=== PATIENT | male | born 1945 | race Caucasian/White ===

== ENCOUNTER → 2018-07-16 09:40 | Outpatient (CLI) | payer MEDICARE, OTHER | END | disposition home or self-care (01) | LOC: D.HCCARDIO 09:40 | PROVIDERS: ATTEND Internal Medicine Cardiovascular Disease | DX: R01.1 Cardiac murmur, unspecified (principal) ==

== ENCOUNTER 2018-08-06 07:07 | Outpatient (CLI) | payer MEDICARE, OTHER ==
[~2018-08-06] VITALS: Ht 182.9 cm; Wt 104.5 kg
--- NOTE | ~2018-08-06 | HEMODYNAMI ---
PATIENT:JUAQUIN GILES MEDICAL RECORD: [id number] : 43 LOCATION:[facility] ADMISSION DATE: 08/06/18 Generatedon:08/06/20189:46 Patient name: JUAQUIN GILES Patient #: [id number] SSN: D OB: 1945 Date of study: 08/06/2018 Page: Of Hemodynamic Procedure Report Patient Data Patient Demographics Procedure consent was obtained First Name: JUAQUIN Gender: Male Last Name: CHAN : 1945 Patient #: [id number] Age: 72 year(s) Race: Unknown Additional ID: [id number] Contact details Address: [address] [place] [address] State: [place] City: [place] Zip code: [address] Past Medical History Allergies: No known allergies Admission Admission Data Admission Date: 08/06/2018 Admission Time: 7:07 Admit Source: Other Weight (lbs.): 231.49 Weight (kg.): 105 Lab Results Lab Result Date: 08/06/2018 Lab Result Time: 0:00 Biochemistry Name Units Result Min Max BUN mg/dl 21 --(----)-* 7 18 Creatinine mg/dl 1.2 --(---*)-- 0.6 1.3 CBC Name Units Result Min Max Hematocrit % 41.8 -*(----)-- 42 54 Hemoglobin g/dl 14.4 --(*---)-- 13.5 17.5 Procedure Procedure Types Cath Procedure Diagnostic Procedure LHC LHC w/Coronaries Aortic Root Angiography Sedation Charges Moderate Sedation up to 15 minutes Procedure Description Procedure Date Procedure Date: 08/06/2018 Procedure Start Time: 9:27 Procedure End Time: 9:45 Procedure Staff Name Function Дмитрий Graham MD Performing Physician Nelly Estrada RT Monitor Dayday Al RT Scrub Vicki Pulliam RN Nurse Procedure Data Cath Procedure Fluoroscopy Diagnostic fluoroscopy Total fluoroscopy Time: 4.4 time: 4.4 min min Diagnostic fluoroscopy Total fluoroscopy dose: dose: 1120 mGy 1120 mGy Contrast Material Contrast Material Type Amount (ml) Isovue 300 109 Entry Location Entry Primary Successful Side Size Upsize Upsize Entry Closure Carter ccessful Closure Location (Fr) 1 (Fr) 2 (Fr) Remarks Device Remarks Radial Right 6 Fr Mechanical artery Short Compression Estimated blood loss: 5 ml Diagnostic catheters Device Type Used For End Catheter Placement DIAGNOSTIC Derian 110cm Procedure 5Fr catheter ([id number]) DIAGNOSTIC Lock[place] 110cm 5 Procedure Fr catheter ([id number]) DIAGNOSTIC Pigtail 5Fr Procedure catheter ([id number]) Procedure Complications No complications Procedure Medications Medication Administration Route Dosage 0.9% NaCl I.V. 100 ml/hr Oxygen etCO2 Nasal cannula 2 l/min Lidocaine 2% added to field 20 Heparin Flush Bag added to field 2 bags (1000units/500ml NS) Radial Cocktail added to field 1 syringe (Verapamil 2mg/Nitro 400mcg/Heparin 1500units) Versed I.V. 2 mg Fentanyl I.V. 50 mcg Fentanyl I.V. 50 mcg Hemodynamics Rest HGB: 14.4 (g/dl) Heart Rate: 58 (bpm) Pressure Samples Time Site Value (mmHg) Purpose Heart Use Rate(bpm) 9:30 LV 134/-6,8 Snapshot 76 9:31 AO 111/68(87) Pullback 71 9:31 LV 129/-4,7 Pullback 71 Gradients Valve Time Site 1 Site 2 Mean SEP/DFP Peak To Heart Use (mmHg) (sec/min) Peak Rate (mmHg) (bpm) Aortic 9:31 LV AO 12 7 18 71 129/-4,7 111/68(87) Calculations Valve P-P Mean Valve Index Valve Source Name Gradient Area Flow (cm2) Aortic 18 12 18 12 Snapshots Pre Cath Intra NCS Post Cath Vital Signs Time Heart Resp SPO2 etCO2 NIBP (mmHg) Rhythm Pain Sedation Rate (ipm) (%) (mmHg) Status Level (bpm) 9:10:34 56 16 99 33.2 134/81(108) SB 0 (11) 10(A) , No pain 9:14:56 55 14 99 39.2 116/78(98) SB 0 (11) 10(A) , No pain 9:19:14 55 13 98 33.9 115/73(85) SB 0 (11) 10(A) , No pain 9:23:31 57 17 98 37.7 115/72(104) SB 0 (11) 10(A) , No pain 9:27:49 56 15 99 39.9 119/72(90) SB 0 (11) 10(A) , No pain 9:32:07 75 16 98 35.4 104/62(83) NSR 0 (11) 9(A) , No pain 9:36:23 75 14 97 40.7 114/65(85) NSR 0 (11) 9(A) , No pain 9:40:39 69 14 98 36.9 107/64(84) NSR 0 (11) 10(A) , No pain 9:44:57 58 13 98 36.9 107/63(89) NSR 0 (11) 10(A) , No pain Medications Time Medication Route Dose Verified Delivered Reason Notes Ef fectiveness by by 9:05:49 0.9% NaCl I.V. 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 2 mg Дмитрий Vicki for Santos Pulliam sedation RN 9:24:44 Fentanyl I.V. 50 mcg Дмитрий Vicki for Santos Pulliam sedation RN 9:29:27 Fentanyl I.V. 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 8:38:30 Signed procedure consent form obtained from patient. 8:38:32 Diagnostic Cath status Elective 8:38:33 Time tracking: Regular hours (M-F 7:00 - 5:00) 8:38:37 Plan of Care:Hemodynamics will remain stable., Cardiac rhythm will remain stable., Comfort level will be maintained., Respiratory function will remain adequate., Patient/ family verbilizes understanding of procedure., Procedure tolerated without complication., Recovers from procedure without complications.. 8:40:28 H&P Date Dictated: 08/06/2018 Within 30 days and on chart., H&P Addendum completed by physician on day of procedure. (MUST COMPLETE FOR ALL OUTPATIENTS). 8:40:36 Patient allergic to No known allergies 8:42:48 Patient Weight : 231.49 lbs 8:44:57 Lab Result : Creatinine 1.2 mg/dl 8:44:57 Lab Result : BUN 21 mg/dl 8:44:57 Lab Result : Hemoglobin 14.4 g/dl 8:44:57 Lab Result : Hematocrit 41.8 % 8:50:19 Dayday Al RT(R) sent for patient. Start room use. 9:00:04 Patient received from Pre/Post Procedure Room to CCL 1 Alert and oriented. Tansferred to table in Supine position. 9:00:06 Warm blankets applied, and ruthy hugger turned on for patient comfort. 9:00:07 Correct patient and procedure confirmed by team. 9:00:07 ECG and BP/O2 sat monitors applied to patient. 9:05:38 Vital chart was started 9:05:49 0.9% NaCl 100 ml/hr I.V. was administered by Vicki Pulliam RN; used for procedure; 9:05:55 Oxygen 2 l/min etCO2 Nasal cannula was administered by Vicki Pulliam RN; used for procedure; 9:06:01 Lidocaine 2% 20ml vial added to field was administered by Дмитрий Graham MD; for local anesthetic; 9:06:05 Heparin Flush Bag (1000units/500ml NS) 2 bags added to field was administered by Дмитрйи Graham MD; used for procedure; 9:06:11 Radial Cocktail (Verapamil 2mg/Nitro 400mcg/Heparin 1500units) 1 syringe added to field was administered by Дмитрий Graham MD; used for procedure; 9:11:49 Baseline sample Acquired. 9:12:00 Rhythm: sinus bradycardia 9:12:02 Full Disclosure recording started 9:12:02 Pre-procedure instructions explained to patient. 9:12:03 Pre-op teaching completed and patient verbalized understanding. 9:12:04 Family in waiting room. 9:12:05 Patient NPO since Midnight. 9:12:07 Is patient on blood thinner?No 9:12:09 Patient diabetic? No. 9:12:12 Previous problem with sedation/anesthesia? No ? 9:12:12 Snore? Yes 9:12:13 Sleep apnea? No 9:12:14 Deviated septum? No 9:12:15 Opens mouth fully? Yes 9:12:16 Sticks out tongue? Yes 9:12:19 Airway obstruction? No ? 9:12:23 Dentures? Yes PARTIAL IN 9:12:26 Modified Juan Manuel's test Ulnar < 7 seconds 9:12:28 Patient pain scale 0/10 ?. 9:12:33 IV patent on arrival in left antecubital with 0.9% NaCl at [facility]. 9:12:36 Lab results completed and on chart. 9:12:39 Right Radial & Right Groin area was prepped with chlora-prep and draped in sterile fashion 9:12:41 Alarms reviewed by R. N. 9:12:41 Sharps counted by scrub and verified by R.N. 9:12:48 Use device set Radial Dx or PCI 9:12:49 ACIST Syringe (41326) opened to sterile field. 9:12:49 Medline Cath Pack ([id number]) opened to sterile field. 9:12:50 Bag Decanter (2002) opened to sterile field. 9:12:51 ACIST Hand Control (73104) opened to sterile field. 9:12:53 ACIST Manifold (23767) opened to sterile field. 9:12:54 Tegaderm 4 x 4 (1626W) opened to sterile field. 9:12:58 EMERALD Guide Wire (275-368) opened to sterile field. 9:12:58 SHEATH 6FR Slender (35-1060) opened to sterile field. 9:13:00 NEEDLE Cook 21G 4cm Radial ([id number]) opened to sterile field. 9:13:00 MBrace Wrist Support ([id number]) opened to sterile field. 9:23:23 --------ALL STOP TIME OUT------ 9::24 Final Timeout: patient, procedure, and site verified with staff and physician. All members of the team are in agreement. 9:23:26 Right Radial & Right Groin site verified by team. 9:23:35 Maximum allowable Isovue 300 dose 300ml. Physician notified. (300ml for normal creatinines. For patients with creatinine of 1.7 or higher multiply weight(kg) x 5 divided by creatinine.) 9:23:40 Fire Safety Assessment: A--An alcohol-based skin anteseptic being used preoperatively., C--Open oxygen or nitrous oxide is being used., D--An ESU, laser, or fiber-optic light is being used. 9:23:43 Physical assessment completed. ASA score P 2 - A patient with mild systemic disease as per Дмитрий Graham MD. 9:23:46 Sedation plan: IV Moderate Sedation Medication:Versed, Fentanyl 9:24:30 Zero performed for pressure channel P1 9:24:38 Versed 2 mg I.V. was administered by Vicki Pulliam RN; for sedation; 9::44 Fentanyl 50 mcg I.V. was administered by Vicki Pulliam RN; for sedation; 9:26:37 Procedure started. 9:27:09 Local anesthetic to right radial artery with Lidocaine 2% by Дмитрий Graham MD.INITIAL ACCESS ONLY 9:28:28 A 6 Fr Short sheath was inserted into the Right Radial artery 9:29:11 A DIAGNOSTIC Derian 110cm 5Fr catheter ([id number]) was advanced over the wire and used for Procedure. 9:29:27 Fentanyl 50 mcg I.V. was administered by Vicki Pulliam RN; for sedation; 9:30:34 LV gram done using BURNS 9:30:39 Injector settings: Ml/sec: 5, Volume: 15, 9:30:52 LV hemodynamics recorded. 9:31:10 EF : 55 % 9:32:50 Catheter exchanged over wire. 9:32:58 UNABLE TO ENGAGE LCA 9:33:38 A DIAGNOSTIC [place] 110cm 5 Fr catheter (919762) was advanced over the wire and used for Procedure. 9:35:47 LCA angiography performed. 9:35:49 RCA angiography performed. 9:36:16 Catheter exchanged over wire. 9:37:01 A DIAGNOSTIC Pigtail 5Fr catheter ([id number]) was advanced over the wire and used for Procedure. 9:41:02 Aortic Root visualized 9:42:39 Catheter removed. 9:43:01 Procedure ended.(Physican Out) 9:43:43 TR BAND Standard ([id number]) opened to sterile field. 9:43:49 Sheath removed intact; hemostasis achieved with Mechanical Compression to the Right Radial artery. 9:43:54 Fluoroscopy time 04.40 minutes. 9:43:58 Fluoroscopy dose: 1120 mGy 9:43:58 Flurop Dose total: 1120 9:44:01 Contrast amount:Isovue 300 109ml. 9:44:02 Sharps counted by scrub and verified by R.N. 9:44:05 TR band inflated with 10cc of air. 9:44:07 Post-procedure physical assessment completed. ASA score P 2 - A patient with mild systemic disease as per Дмитрий Graham MD. 9:44:09 Post procedure rhythm: sinus rhythm 9:44:12 Estimated blood loss: 5 ml 9:44:13 Post procedure instruction explained to patient.Patient verbalizes understanding. 9:44:14 Patient needs reinforcement of post procedure teaching. 9:44:30 Procedure type changed to Cath procedure, Diagnostic procedure, LHC, LHC w/Coronaries, Aortic Root Angiography, Sedation Charges, Moderate Sedation up to 15 minutes 9:44:53 Procedure and supply charges have been captured, reviewed, submitted and are correct. 9:44:55 Procedure Complication : No complications 9:44:57 Vital chart was stopped 9:44:57 See physician's report for complete and final results. 9:44:58 Report given to Pre/Post Procedure Room. 9:45:01 Patient transfered to Pre/Post Procedure Room with Stretcher. 9:45:03 Procedure ended. 9:45:03 Full Disclosure recording stopped 9:45:08 End room use (Document Last) Device Usage Item Name Manufacture Quantity Catalog Hospital Part Current Minimal Lot# / Number Charge Number Stock Stock Serial# Code VIKTOR Flaherty 1 36655 889146 738166 503429 20 Syringe Shustir (95669) HitMeUp Inc Medline Medline 1 [id number] 266376 19159 295909 5 Cath Pack ([id number]) Bag Microtek 1 371942 88564 853636 5 DecGlimmerglass [employer] Inc. (2002S) ACIST Hand Acist 1 84704 480090 288864 119790 5 Control Medical (92051) Systems Inc ACIST Acist 1 96395 554192 687904 748487 5 Manifold Medical (29029) Systems Inc Tegaderm 4 3M 1 1626W 379181 029888 373015 5 x 4 (1626W) EMERALD Cardinal 1 502-455 820033 503001 279808 5 Guide Wire Health (502-455) SHEATH 6FR Terumo 1 [id number] 019738 912437 584953 5 Slender (80-1060) NEEDLE Intellitactics Cook Medical 1 [id number] 185020 630647 430240 5 21G 4cm Radial (G78253) MBrace Advanced 1 140-0250-00 138183 46203 551980 5 Wrist Vascular Support Dynamics ([id number]) DIAGNOSTIC Terumo 1 40-5023 798753 109039 666073 5 Derian 110cm 5Fr catheter (225329) DIAGNOSTIC Terumo 1 40-5013 711562 991032 822985 5 [place] 110cm 5 Fr catheter (624126) DIAGNOSTIC Cardinal 1 194066Y 564532 909421 163495 5 Pigtail 5Fr Health catheter (554713Y) TR BAND Terumo 1 [id number] 015935 927073 238347 40 Standard ([id number]) Signature Audit Melvin Stage Time Signature Unsigned Intra-Procedure 08/06/2018 Nelly Estrada 9:46:38 AM RT(R) Signatures Monitor : Nelly Estrada Signature : RT Date : Time : [facility] [address] [place] [address]
[2018-08-06] MEDS ORDERED: LOTENSIN 10 MG10 MG PO (07:20)
[2018-08-06] MEDS ORDERED: ZYLOPRIM300 MG PO (07:20)
[2018-08-06] MEDS ORDERED: NORVASC5 MG PO (07:21)
[2018-08-06 07:40] VITALS: BP 138/82; Ht 182.9 cm; Wt 104.5 kg
[2018-08-06 07:50] LABS: BASOPHILS 0.2 % (0-2); HEMATOCRIT 41.8 % (42.0-54.0); HEMOGLOBIN 14.4 g/dL (13.5-17.5); IMMATURE GRANULOCYTES 0.9 % (0-5); LYMPHOCYTES 22.9 % (15-50); MCH 33.3 pg (26.0-34.0); MCHC 34.4 g/dL (31.0-37.0); MCV 96.8 fL (80.0-100.0); MONOCYTES 11.3 % (2-11); NEUTROPHILS 61.7 % (40-80); PLATELET COUNT 201 10x3/uL (130-400); RBC 4.32 10x6/uL (4.20-6.10); RDW 13.2 % (11.5-14.5); WBC 5.3 10x3/uL (4.8-10.8)
[2018-08-06 08:19] LABS: ANION GAP 14.9 mmol/L (8-16); CALCIUM 9.5 mg/dL (8.5-10.1); CARBON DIOXIDE 26.3 mmol/L (21.0-32.0); CREATININE - SERUM 1.2 mg/dL (0.6-1.3); POTASSIUM - SERUM 4.2 mmol/L (3.5-5.1)
--- NOTE | 2018-08-06 09:53 | NUR ---
PT ARRIVED BY STRETCHER. PLACED ON MONITORS AND ASSESSMENT COMPLETED. FAMILY AT BEDSIDE.
--- NOTE | 2018-08-06 10:10 | NUR ---
PT RESTING COMFORTABLY. VSS. FAMILY AT BEDSIDE. DR. CROCKETT ROUNDED AND SPOKE WITH PT AND PT'S FAMILY. RIGHT RADIAL TR BAND IN PLACE. NO BLEEDING/HEMATOMA NOTED.
--- NOTE | 2018-08-06 10:40 | NUR ---
PT SITTING UP IN BED. VISITING WITH FAMILY. VSS. RIGHT RADIAL TR BAND IN PLACE. NO BLEEDING/HEMATOMA NOTED.
--- NOTE | 2018-08-06 11:00 | NUR ---
3cc OF AIR REMOVED FROM TR BAND. PT TOLERATED WELL. NO BLEEDING/HEMATOMA NOTED.
--- NOTE | 2018-08-06 11:15 | NUR ---
3cc OF AIR REMOVED FROM TR BAND. PT TOLERATED WELL. NO BLEEDING/HEMATOMA NOTED. VSS. FAMILY AT BEDSIDE.
--- NOTE | 2018-08-06 11:33 | NUR ---
3cc OF AIR REMOVED FROM TR BAND. TOLERATING WELL. NO BLEEDING/HEMATOMA NOTED. MEREDITH BRYANT RN AT BEDSIDE SPEAKING WITH PT ABOUT CV SURGERY AND SETTING UP APPT TO VISIT IN CLINIC AFTER DISCHARGE.
--- NOTE | 2018-08-06 11:40 | NUR ---
LEFT WRIST PIV D/C'D WITH CATH TIP INTACT. PT TOLERATED WELL. PT INSTRUCTED TO GET UP AND DRESSED. PT'S FAMILY AT BEDSIDE TO ASSIST. NO ASSISTANCE NEEDED AT THIS TIME FROM NURSE. CALL LIGHT WITHIN REACH.
--- NOTE | 2018-08-06 11:45 | NUR ---
PT AMBULATED TO RESTROOM. VOIDED WITHOUT DIFFICULTY. NO S/S OF DISTRESS NOTED. TR BAND REMOVED. DRESSING APPLIED. NO BLEEDING/HEMATOMA NOTED.
--- NOTE | 2018-08-06 11:50 | NUR ---
DISCUSSED DISCHARGE INSTRUCTIONS WITH PT AND PT'S FAMILY. THEY VOICED UNDERSTANDING. RIGHT WRIST DRESSING C/D/I. NO S/S OF HEMATOMA NOTED.
--- NOTE | 2018-08-06 12:00 | NUR ---
PT TAKEN OUT TO VEHICLE BY WHEELCHAIR. NO S/S OF DISTRESS NOTED. ALL BELONGINGS AND PAPERWORK IN HAND.
== END 2018-08-06 12:00 | disposition home or self-care (01) ==
LOC: D.CATH 07:07
PROVIDERS: ATTEND Internal Medicine Cardiovascular Disease
DX: I25.119 Atherosclerotic heart disease of native coronary artery with unspecified angina pectoris (principal); I77.819 Aortic ectasia, unspecified site; Z01.812 Encounter for preprocedural laboratory examination; Z79.899 Other long term (current) drug therapy

== ENCOUNTER 2018-08-12 12:44 | Inpatient (IN) | payer MEDICARE, OTHER ==
[~2018-08-12] VITALS: Ht 182.9 cm; Wt 105.5 kg
[~2018-08-12 12:44] MED LIST: LOTENSIN 10 MG10 MG PO; NORVASC5 MG PO; ZYLOPRIM300 MG PO
[2018-08-12 14:53] LABS: BASOPHILS 0.3 % (0-2); EOSINOPHILS 2.3 % (0-7); HEMATOCRIT 43.1 % (42.0-54.0); HEMOGLOBIN 14.8 g/dL (13.5-17.5); IMMATURE GRANULOCYTES 0.5 % (0-5); LYMPHOCYTES 25.5 % (15-50); MCH 33.6 pg (26.0-34.0); MCHC 34.3 g/dL (31.0-37.0); MCV 97.7 fL (80.0-100.0); MEAN PLATELET VOLUME 10.1 fL (7.4-10.4); NEUTROPHILS 60.4 % (40-80); PLATELET COUNT 237 10x3/uL (130-400); RBC 4.41 10x6/uL (4.20-6.10); RDW 13.3 % (11.5-14.5); WBC 6.1 10x3/uL (4.8-10.8)
[2018-08-12 15:00] LABS: APTT 28.7 SECONDS (22.8-39.4); INR 1.04 (0.85-1.17); PROTIME 13.1 SECONDS (11.6-15.0)
[2018-08-12 15:02] LABS: APPEARANCE CLEAR (CLEAR); BILIRUBIN NEGATIVE (NEGATIVE); COLOR YELLOW (YELLOW); GLUCOSE NEGATIVE (NEGATIVE); KETONE NEGATIVE (NEGATIVE); NITRITE NEGATIVE (NEGATIVE); PROTEIN NEGATIVE (NEGATIVE); UROBILINOGEN NORMAL (NORMAL)
[2018-08-12 15:17] LABS: ALBUMIN 3.6 g/dL (3.4-5.0); BILIRUBIN - TOTAL 0.54 mg/dL (0.2-1.3); CALCIUM 9.2 mg/dL (8.5-10.1); CARBON DIOXIDE 31.9 mmol/L (21.0-32.0); CREATININE - SERUM 1.2 mg/dL (0.6-1.3); PHOSPHOROUS 3.5 mg/dL (2.5-4.9); POTASSIUM - SERUM 3.9 mmol/L (3.5-5.1); PROTEIN - SERUM 8.5 g/dL (6.4-8.2); T4 THYROXIN - FREE 0.81 ng/dL (0.76-1.46); THYROID STIMULATING HORMONE 1.94 uIU/mL (0.36-3.74); URIC ACID 4.4 mg/dL (2.6-7.2)
[2018-08-19] VITALS (40 sets, daily range): BP systolic 80–135; BP diastolic 48–83; BMI 31.2; BMI 31.9
[2018-08-19] MEDS ORDERED: BAYER CHEWABLE81 MG PO (06:00)
[2018-08-19] MEDS ORDERED: TUMERIC (06:01)
[2018-08-19] MEDS ORDERED: I-CAPS (06:02)
[2018-08-19] MEDS ORDERED: SUPER BETA PROSTATE (06:03)
[2018-08-19] MEDS ORDERED: VITAMIN B-12500 MC1 PO (06:04)
[2018-08-19] MEDS ORDERED: VITAMIN (06:04)
[2018-08-19] MEDS ORDERED: [UNRECOGNIZED DRUG - OTHER] (06:08)
[2018-08-19 08:31] LABS: APTT 29.5 SECONDS (22.8-39.4); INR 1.1 (0.85-1.17); PROTIME 13.7 SECONDS (11.6-15.0)
[2018-08-19 09:44] LABS: INR 1.16 (0.85-1.17); PROTIME 14.3 SECONDS (11.6-15.0)
[2018-08-19 09:48] LABS: APTT 53.2 SECONDS (22.8-39.4)
--- NOTE | 2018-08-19 14:17 | NUR ---
PT ARRIVED IN UNIT. PT HOOKED TO ICU MONITORS. PT SEDATED AND ON THE VENTILATOR. PT CAME IN THE UNIT WITH PLASMALYTE, SAMANTHA AND EPI INFUSING. 8.0 ETT NOTED 26 AT THE LIP. RIGHT IJ CORDIS NOTED. DRESSING C/D/I. MIDLINE INCISION. DRESSING C/D/I. SUBSTERNAL DRESSING C/D/I. CT X2 Y'D INTO A SINGLE TUBE NOTED CONNECTED TO 20 H2O SUCTION WITH NO AIR LEAK. LEFT TUNDE DRAIN COMPRESSED. BLOODY DRAINAGE NOTED. DRESSING C/D/I. ATRIAL PACER WIRES CONNECTED TO A TPM. AAI 80, AMA 15, SENT 0.5. PT PACING WITH A FIRST DEGREE BLOCK NOTED. R RADIAL MATA NOTED. GOOD WAVE FORM. WRIST PROTECTOR ON. LEFT AC PIV NOTED C/D/I WITH NO S/SX OF INFILTRATION. FC NOTED WITH CLEAR, YELLOW URIN. LLE HARVEST NOTED WITH COBAN FROM ANKLE TO GROIN. C/D/I. RLE DRESSING X1 FROM UNSUCCESSFUL HARVEST. DRESSING C/D/I. CALL LIGHT IN REACH. WILL CONT POC.
--- NOTE | 2018-08-19 14:22 | NUR ---
ATTEMPT EVH ON RIGHT LEG, MOVE TO LEFT, VEIN HARVEST FORM LEFT LEG ENDOVASCULAR.
--- NOTE | 2018-08-19 15:50 | NUR ---
PT ANSWER YES AND NO QUESTIONS BUT STILL UNABLE TO FOLLOW COMMANDS SUCH SQUEEZING FINGERS OR MOVING EXTIMITIES. VSS. WILL CONT POC.
--- NOTE | 2018-08-19 15:55 | NUR ---
ABG OBTAINED PER ORDERS
--- NOTE | 2018-08-19 16:05 | NUR ---
1 AMP GIVEN AND REPEAT ABGS IN [address] JOYA.
--- NOTE | 2018-08-19 16:10 | NUR ---
PT FOLLOWING COMMANDS. VSS. CPAP PER RT. PT TOLERATING WELL.
--- NOTE | 2018-08-19 16:40 | NUR ---
DR JOYA AT THE PTS BEDSIDE. HE TURNED OFF PACEMAKER. PT NSR RATE 85. PT FOLLOWING COMMANDS DOING WELL WITH WEENING TRIALS WITH THE VENTILATOR.
--- NOTE | 2018-08-19 16:45 | NUR ---
DR JOYA INSTRUCTED TO GIVE 1 AMP OF HCO3 AND REPEAT ABG IN 30.
--- NOTE | 2018-08-19 17:10 | NUR ---
ABGS COMPLETED PER ORDERS. DR JOYA CHECKED RESULTS. OK TO EXTUBATE.
--- NOTE | 2018-08-19 17:15 | NUR ---
PT EXUBATED PER RT AND PLACE ON 2L VIA NC. PT DOING WELL.
--- NOTE | 2018-08-19 18:54 | NUR ---
PT TACHYPNEIC. ABG OBTAINED. O2 INCREASED FROM 2L TO 4L. DR JOYA CALLED AND NOTIFIED. NS 250 BOLUS. GIVEN 1 AMP OF HCO3, CPAP AT 5CM FOR 2 HOURS AND REPEATE ABG. (RT NOTIFIED AND AWARE). DECREASE EPI GTT IN HALF AND TRY TO WEEN OFF SAMANTHA.
--- NOTE | 2018-08-19 20:00 | NUR ---
FAMILY AT BEDSIDE, UPDATE GIVEN, PT C/O INCISIONAL PAIN, PAIN MED GIVEN SEE MAR FOR FURTHER, REPOSITIONED FOR COMFORT, VSS, WILL CONTINUE TO MONITOR
--- NOTE | 2018-08-19 21:28 | NUR ---
NOTIFIED ABG RESULTS WITH PT UPDATE, NO NEW ORDERS RECEIVED, PT WILL CONTINUE TO MONITOR
--- NOTE | 2018-08-19 23:00 | NUR ---
REASSESSMENT COMPLETE SEE FLOW SHEET, PT AAOx4, CPAP SETTINGS PER RT, PT TOLLERATING WELL, ABLE TO SWALLOW SIPS H2O WHEN PLACED ON NC, VSS, REPOSITIONED FOR COMFORT, WILL CONTINUE TO MONITOR
[2018-08-20] VITALS (51 sets, daily range): BP systolic 93–120; BP diastolic 54–80; BMI 31.7
--- NOTE | 2018-08-20 02:00 | NUR ---
PT REPOSITIONED WITH DANIEL RN AT BEDSIDE TO ASSIST, DANGLED ON BEDSIDE PER ORDERS, NO ACUTE S/S OF DISTRESS NOTED, VSS, TCDB WHILE DANGLED, REPOSITIONED BACK IN BED, LINES REPOSITIONED, SIP OF H2O PER REQUEST, WILL CONTINUE TO MONITOR
--- NOTE | 2018-08-20 03:00 | NUR ---
REASSESSMENT COMPLETE SEE FLOW SHEET, PT RESTING WITH EYES CLOSED, NO ACUTE CHANGES OR S/S OF DISTRESS NOTED, VSS, WILL CONTINUE TO MONITOR
[2018-08-20 06:00] LABS: HEMATOCRIT 37.9 % (42.0-54.0); HEMOGLOBIN 12.8 g/dL (13.5-17.5); MCH 33.2 pg (26.0-34.0); MCHC 33.8 g/dL (31.0-37.0); MCV 98.4 fL (80.0-100.0); MEAN PLATELET VOLUME 10.4 fL (7.4-10.4); RBC 3.85 10x6/uL (4.20-6.10); RDW 13.9 % (11.5-14.5); WBC 14.8 10x3/uL (4.8-10.8)
--- NOTE | 2018-08-20 06:00 | NUR ---
CHG BATH COMPLETED WITH STUART CARE, YELLOW GOWN PLACED ON PT, MAT HOSE/SCD CHANGED, PT AAOx4 DENIES PAIN OR NEEDS AT THIS TIME, VSS, WILL CONTINUE TO MONITOR
[2018-08-20 06:38] LABS: ALBUMIN 2.7 g/dL (3.4-5.0); ANION GAP 11.4 mmol/L (8-16); BILIRUBIN - TOTAL 1.06 mg/dL (0.2-1.3); CALCIUM 8.1 mg/dL (8.5-10.1); CARBON DIOXIDE 27.8 mmol/L (21.0-32.0); CREATININE - SERUM 1.2 mg/dL (0.6-1.3); POTASSIUM - SERUM 4.2 mmol/L (3.5-5.1); PROTEIN - SERUM 6.4 g/dL (6.4-8.2)
--- NOTE | 2018-08-20 07:46 | NUR ---
DR JOYA BY TO CHECK ON PATIENT. PT UP IN CHAIR. NEW ORDER TO REMOVE ART LINE AND STUART. WILL REMOVE CHEST TUBES LATER TODAY. WEAN SAMANTHA. CHEST TO WATER SEAL FOR NOW.
--- NOTE | 2018-08-20 09:59 | NUR ---
RIGHT RADIAL ART LINE REMOVED, NO BLEEDING. TIP INTACT. DRESSINGS TO LEFT LEF REMOVED, SITES GLUED, NO DRAINAGE. ONLY SITE AT RISK OF IRRITATION FROM MAT COVERED. RIGHT LOWER LEG DRESSING CHANGED.
--- NOTE | 2018-08-20 10:57 | NUR ---
SUBSTERNAL DRESSING CHANGED. STUART CATHETER REMOVED. URINAL PROVIDED. PT AGAIN INSTRUCTED ON USE OF INCENTIVE SPIROMETER BY RT AND RN.
--- NOTE | 2018-08-20 11:25 | NUR ---
DR FLEMING AT BEDSIDE AT THIS TIME.
--- NOTE | 2018-08-20 12:27 | NUR ---
PT REMAINS UP IN CHAIR AT BEDSIDE. LUNCH TRAY HAS BEEN PROVIDED. FAMILY IN FOR VISITATION AT THIS TIME.
--- NOTE | 2018-08-20 15:00 | NUR ---
REASSESSMENT COMPLETED. SEE FLOW SHEET.
--- NOTE | 2018-08-20 15:37 | OP ---
PATIENT NAME: JUAQUIN GILES MEDICAL RECORD: [id number] :43 LOCATION:D.CVI DCorrineCV06 ADMISSION DATE:08/19/18 SURGEON: ABHIJIT JOYA MD DATE OF OPERATION: 08/19/2018 SURGEON: Abhijit Joya MD COO [employer] CO FOUNDER: Esteban Dorman OPERATIONS PERFORMED: 1. Coronary artery bypass graft times 4 (left internal mammary artery to LAD, reverse saphenous vein graft from aorta to obtuse marginal, from the side of that vein graft to the second diagonal distally, and from aorta to posterior descending artery). 2. Endoscopic saphenous vein harvest. PREOPERATIVE DIAGNOSIS: Coronary artery disease. POSTOPERATIVE DIAGNOSIS: Coronary artery disease. ANESTHESIA: General endotracheal anesthesia. ESTIMATED BLOOD LOSS: Total cardiopulmonary bypass with Cell Saver. SPECIMENS: None. COMPLICATIONS: None. CONDITION: Stable. DISPOSITION: CV ICU. OPERATIVE FINDINGS: 1. Transesophageal echocardiography revealed 2+ mitral regurgitation before coronary artery bypass graft, reduced to trace after coronary artery bypass graft. 2. Small greater saphenous vein below the knee on of the right, so the left greater saphenous vein was harvested endoscopically. It had moderate varicosities. 3. Good quality left internal mammary artery. The LAD was 1.5-mm vessel with diffuse disease. Good Doppler signal after anastomosis and after reversal of heparin. 4. Second diagonal was a 1.5-mm vessel with proximal plaque. This was the smallest caliber portion of vein and it was used as an end-to-side to the obtuse marginal graft. 5. Obtuse marginal 2.5 mm with diffuse disease. 6. Posterior descending artery 2.0 mm. OPERATIVE INDICATION: Coronary artery disease. OPERATIVE PROCEDURE IN DETAIL: The patient was brought to the operating suite. General anesthesia was obtained. The patient was prepped and draped. Greater saphenous vein was harvested endoscopically from the left lower extremity after exposing the right and noting it to be small. Side branches were divided with electrocautery. The vessel was ligated proximally and distally and removed. OPERATIVE REPORT [id number] JUAQUIN GILES Side branches were tied. Thin sites were oversewn. Leg was later irrigated and closed in 2 layers. Median sternotomy incision was made. Subcutaneous tissue was divided with electrocautery. Sternum was divided with a saw. Left hemisternum was elevated. Left pleural cavity was entered. Left internal mammary artery and vein were taken down as a pedicle graft. Sternal retractor was placed. Pericardium was opened. Heparin was given. Aorta was cannulated. Dual stage venous cannula was inserted. Internal mammary was clipped distally and made ready for anastomosis. After activated clotting time was appropriately elevated, the patient was placed on cardiopulmonary bypass. Sites for distal anastomosis were selected. The patient's temperature was allowed to drift downward. Antegrade cardioplegic cannula was inserted. Cross-clamp was placed. Cardioplegia was given antegrade and this was repeated at 15- to 20-minute intervals during the cross-clamp time including down the completed vein graft. Distal anastomosis was performed in standard technique and proximal anastomosis with a single cross-clamp technique. Aortic root was de-aired. Proximal anastomosis was tied down. Vein grafts were de-aired and flow was restored. Single [id number] proximal performed and all grafts were noted to lay appropriately. The patient was fully rewarmed, weaned from cardiopulmonary bypass, and was stable. The patient was decannulated. Cannula sites were oversewn. Protamine was given. Thorough irrigation was undertaken. Hemostasis was assured. Atrial pacing wires were placed. Initially, the patient was paced atrially due to bradycardia. Drains were placed in the mediastinum and left in the pleural cavity. Pericardial fat was loosely reapproximated. Left chest was evacuated and irrigated. The internal mammary harvest site was inspected for bleeding. Sternum was closed with wires. Fascia was closed. Subcutaneous tissue was closed. Skin was closed. Dermabond was placed. Needle and sponge counts were reported as correct and the patient was taken to the ICU in stable condition. TRANSINT:[id number] Voice Confirmation ID: [id number] DOCUMENT ID: [id number] ABHIJIT JOYA MD at 1537 CC: ADELITA CROCKETT M.D. and BRANDON CARDENAS [phone] DICTATION DATE: 08/19/181656 PRESERVATIONIST: 08/19/18 1857 ADM IN [facility] [address] [id number]
--- NOTE | 2018-08-20 17:49 | NUR ---
CT X2 PULLED PER DR JOYA. DRESSING CHANGED. PT SITTING UPRIGHT IN BED. PT EATING HIS SUPPER. VSS. CALL LIGHT IN REACH. WILL CONT POC.
--- NOTE | 2018-08-20 19:31 | NUR ---
REPORT RECEIVED, SHIFT ASSESSMENT COMPLETED PER FLOW SHEET. AAOX4. PPP. INSTRUCTED PATIENT ON USE OF IS AND ENCOURAGED TO COUGH/DEEP BREATHE, PULLING 500 X10 ON IS. COUGH NON-PRODUCTIVE. RT IJ CVL PATENT, DRESSING C/D/I. DENIES NEEDS. CALL LIGHT WITHIN REACH. WILL CONTINUE TO MONITOR.
--- NOTE | 2018-08-20 21:29 | NUR ---
SCHEDULED MEDS GIVEN, SEE EMAR FOR DETAILS. WATER PROVIDED, NO DIFFICULTY SWALLOWING. PULLING 500 X 10 ON IS. DENIES NEEDS. CALL LIGHT WITHIN REACH.
--- NOTE | 2018-08-20 23:09 | NUR ---
REASSESSMENT COMPLETED PER FLOW SHEET, SEE FOR DETAILS. NO ACUTE DISTRESS NOTED. DENIES NEEDS. CALL LIGHT WITHIN REACH. WILL CONTINUE TO MONITOR.
[2018-08-21] VITALS (24 sets, daily range): BP systolic 98–130; BP diastolic 61–86
--- NOTE | 2018-08-21 01:00 | NUR ---
RESTING, DENIES NEEDS. 110 ML OF ALHAJI UOP EMPTIED FROM URINAL. CALL LIGHT WITHIN REACH. WILL CONTINUE TO MONITOR.
--- NOTE | 2018-08-21 03:07 | NUR ---
REASSESSMENT COMPLETED PER FLOW SHEET, SEE FOR DETAILS. NO ACUTE CHANGES NOTED. DENIES NEEDS. 190 ML OF ALHAJI UOP EMPTIED FROM UNINAL. CALL LIGHT WITHIN REACH. WILL CONTINUE TO MONITOR.
--- NOTE | 2018-08-21 05:00 | NUR ---
NO ACUTE CHANGES NOTED, DENIES NEEDS AT THIS TIME, CALL LIGHT WITHIN REACH. WILL CONTINUE TO MONITOR.
--- NOTE | 2018-08-21 07:00 | NUR ---
REPORT RECEVIED FROM THE OFF GOING RN. SEE ASSESSMENT IN THE PTS FLOW SHEET. PT SITTING OOB. VSS. PT DENIES PAIN AT HIS TIME. NSR ON THE MONITOR. 5L O2 VIA NC. ENCOURAGED TCDB AND TO SPLINT HIS CHEST WITH A PILLOW. PT COUGHED UP A THICK GREENISH/BROWNISH LARGE SPUTUM. PT ONLY ABLE TO PULL ABOUT 500 ON HIS IS. PT ENCOURAGED TO USE HIS IS 10X'S/H. NSR ON THE MONITOR. MIDSTERNAL DRESSING C/D/I. SUBSTERNAL DRESSING C/D/I WITH A SINGLE TUNDE DRAIN NOTED. DRAIN COMPRESSED. BLE HARVEST SITES DRESSINC C/D/I. PT DENIES PAIN AT THIS TIME. BREAKFAST TRAY PROIVIDED FOR THE PT. CALL LIGHT IN REACH. WILL CONT POC.
[2018-08-21 07:14] LABS: HEMATOCRIT 32.6 % (42.0-54.0); HEMOGLOBIN 10.8 g/dL (13.5-17.5); MCH 32.7 pg (26.0-34.0); MCHC 33.1 g/dL (31.0-37.0); MCV 98.8 fL (80.0-100.0); MEAN PLATELET VOLUME 10.5 fL (7.4-10.4); RBC 3.3 10x6/uL (4.20-6.10); RDW 13.9 % (11.5-14.5); WBC 11.6 10x3/uL (4.8-10.8)
[2018-08-21 07:27] LABS: ALBUMIN 2.4 g/dL (3.4-5.0); ANION GAP 7.3 mmol/L (8-16); BILIRUBIN - TOTAL 0.76 mg/dL (0.2-1.3); CALCIUM 8.2 mg/dL (8.5-10.1); CARBON DIOXIDE 30.6 mmol/L (21.0-32.0); CREATININE - SERUM 1.1 mg/dL (0.6-1.3); POTASSIUM - SERUM 3.9 mmol/L (3.5-5.1); PROTEIN - SERUM 6.3 g/dL (6.4-8.2)
--- NOTE | 2018-08-21 08:50 | NUR ---
PT REQUEST A PAIN PILL. SEE MAR.
--- NOTE | 2018-08-21 09:19 | NUR ---
PT AMBULATED WITH PHYSICAL THERAPY ABOUT 20 FEET. SLOW AND STEADY GAIT NOTED. PT TOLERATED WELL. VSS AT THIS TIME. WILL CONT POC.
--- NOTE | 2018-08-21 11:00 | NUR ---
REASSESSEMENT COMPLETED. SEE FLOW SHEET.
--- NOTE | 2018-08-21 11:30 | NUR ---
COMPLETED CHD BATH GIVEN. SUBSTERNAL DRESSING'S CHANGED. WILL CONT POC.
--- NOTE | 2018-08-21 12:15 | NUR ---
PT ASSISTED TO THE BATHROOM. PT AMBULATED WITH A NORMAL AND STEADY GAIT. NO BM BUT PT DID STATE THAT HE PASSED GAS.
--- NOTE | 2018-08-21 16:05 | MORECARE ---
CASE MANAGEMENT DISCHARGE SUMMARY PATIENT: JUAQUIN GILES UNIT: [id number] ADM DATE: 08/19/18 AGE: 72 : 44 SEX: M ROOM/BED: D[facility] AUTHOR: XIOMY PRICE PHYSICIAN: REFERRING PHYSICIAN: YEISON JOYA MD DATE OF SERVICE: 08/21/18 Discharge Plan Patient Name: JUAQUIN GILES Facility: [facility]:[place] : 1945 Planned Disposition: Anticipated Discharge Date: Discharge Date: Expected LOS: Initial Reviewer: [email or web address] Initial Review Date: 08/21/2018 Generated: 08/21/18 5:04 pm Comments DCP- Discharge Planning Updated by [email or web address]: Nyida Dickson on 08/21/18 3:[address] Patient Name: JUAQUIN GILES Admission Status: Elective Accout number: [id number] Admission Date: 08-19-2018 : 1945 Admission Diagnosis: Attending: YEISON JOYA Current LOS: 2 Anticipated DC Date: Planned Disposition: Primary Insurance: MEDICARE A & B Discharge Planning Comments: CM MET WITH PATIENT ABOUT DC PLANNING/NEEDS. RESOURCES FOR POST DISCHARGE OFFERED TO PATIENT. STATES NO NEEDS AT THIS TIME. WILL DC TO HOME WITH FAMILY. STATES DOES HAVE A WALKER AT HOME IF NEEDED. CM TO FOLLOW AND ASSIST NEEDED WITH DC PLANNING/NEEDS. Car Retarder Operator: Nydia Dickson DCPIA - Discharge Planning Initial Assessment Updated by [email or web address]: Nydia Dickson on 08/21/18 4:03 pm * Is the patient Alert and Oriented? Yes * PCP CARDENAS * Pharmacy [facility] IN [place] * Preadmission Environment Home with Family * ADLs Independent * Equipment None * List name and contact numbers for known caregivers / representatives who currently or will assist patient after discharge: ESTEPHANIE, , * Community resources currently utilized None * Additional services required to return to the preadmission environment? No * Can the patient safely return to the preadmission environment? Yes * Has this patient been hospitalized within the prior 30 days at any hospital? No Patient Name: JUAQUIN GILES Page [id number] at 1605 All edits/amendments must be made on the electronic document DICTATION DATE: 08/21/181603 VAULT INSTALLER: FOX 08/21/181603 RPT#: [id number] DC DATE: STATUS: ADM IN [facility] [address] [place] [address] END OF REPORT
--- NOTE | 2018-08-21 21:00 | NUR ---
1900 REPORT RECEIVED CARE ASSUMED ASSESSMENT DONE SEE FLOW SHEET. VSS. 2100 MEDS GIVEN PER MAR. VSS. NO SIGNS OF ACUTE DISTRESS NOTED. FAMILY AT BEDSIDE QUESTIONS ANSWERED TEACHING PROIVIDED.
[2018-08-22] VITALS (22 sets, daily range): BP systolic 91–143; BP diastolic 56–88; Ht 182.9 cm; Wt 105.5 kg
--- NOTE | 2018-08-22 00:49 | NUR ---
2300 REASSESMENT DONE SEE FLOW SHEET VSS. 0049 PT IN BED RESTING VSS NO SIGNS OF ACUTE DISTRESS NOTED WILL CONTINUE TO MONITOR.
--- NOTE | 2018-08-22 01:00 | NUR ---
WATER PROVIDED PER PT REQUEST VSS WILL CONTINUE TO MONITOR.
[2018-08-22 03:37] LABS: HEMATOCRIT 30.6 % (42.0-54.0); HEMOGLOBIN 10.1 g/dL (13.5-17.5); MCH 32.5 pg (26.0-34.0); MCV 98.4 fL (80.0-100.0); MEAN PLATELET VOLUME 10.6 fL (7.4-10.4); RBC 3.11 10x6/uL (4.20-6.10); RDW 13.8 % (11.5-14.5); WBC 9.6 10x3/uL (4.8-10.8)
--- NOTE | 2018-08-22 03:39 | NUR ---
0300 REASSESSMENT DONE SEE FLOW SHEET VSS. 0339 RHYTHM CHANGE NOTED. STAT LABS DRAWN. WILL CONTINUE TO MONITOR.
[2018-08-22 03:55] LABS: ALBUMIN 2.3 g/dL (3.4-5.0); ALKALINE PHOSPHATASE 51 U/L (46-116); ALT (SGPT) 25 U/L (10-68); BILIRUBIN - TOTAL 0.59 mg/dL (0.2-1.3); CALC OSMOLALITY 282 mosm/kg (275-300); CALCIUM 8.1 mg/dL (8.5-10.1); CHLORIDE - SERUM 104 mmol/L (98-107); GLUCOSE 121 mg/dL (74-106); MAGNESIUM - SERUM 2.1 mg/dL (1.8-2.4); POTASSIUM - SERUM 3.6 mmol/L (3.5-5.1); PROTEIN - SERUM 6.3 g/dL (6.4-8.2); SODIUM 140 mmol/L (136-145); UREA NITROGEN 21 mg/dL (7-18); eGFR NON AFRICAN AMERICAN 78 mL/min (90-120)
--- NOTE | 2018-08-22 04:27 | NUR ---
DR JOYA INFORMED OF PT STATUS ORDER RECEIVED SEE MAR WILL CONTINUE TO MONITOR.
--- NOTE | 2018-08-22 05:36 | NUR ---
PT CONVERTED TO NS. VSS WILL CONTINUE TO MONITOR.
--- NOTE | 2018-08-22 07:40 | NUR ---
PT UP TO CHAIR. BREAKFAST TRAY SERVED. PT WITH OUT COMPLAINTS.
--- NOTE | 2018-08-22 08:55 | NUR ---
PT C/O PAIN WITH COUGHING. PO PAIN MED GIVEN.
--- NOTE | 2018-08-22 09:28 | NUR ---
PT AMB 100 FT WITH PT. SR /ST 104 ON CM. PT CHUCKIE WELL.
--- NOTE | 2018-08-22 10:24 | NUR ---
PT SITTIN UP IN CHAIR. ASSIST TO BATHROOM TO VOID.
--- NOTE | 2018-08-22 12:09 | NUR ---
DR JOYA HERE ON ROUNDS.
--- NOTE | 2018-08-22 15:48 | NUR ---
PIV 20GA RT WRIST SITED X 1 STICK. RT CVL DCD. DSNG APPLIED.
--- NOTE | 2018-08-22 18:03 | NUR ---
DR GRIFFIN HERE ON ROUNDS. REPORTED SPUTUM PRODUCTION COLOR YELLOW AND IS THICK. REC'D NEW ORDERS.
--- NOTE | 2018-08-22 23:00 | NUR ---
1900 REPORT RECIEVED CARE ASSUMED ASSESSMENT DONE SEE FLOW SHEET. 2100 MEDS GIVEN PER MAR. VSS. 2300 REASSESSMENT DONE SEE FLOW SHEET VSS.
[2018-08-23] VITALS (24 sets, daily range): BP systolic 96–156; BP diastolic 63–98
--- NOTE | 2018-08-23 05:00 | NUR ---
0100 WATER PROVIDED PER REQUEST. VSS. 0300 REASSESSMENT DONE SEE FLOW SHEET VSS 0500 IO COLLECTED DAILY WEIGHT COLLECTED VSS
[2018-08-23 06:01] LABS: HEMATOCRIT 29.6 % (42.0-54.0); HEMOGLOBIN 9.7 g/dL (13.5-17.5); MCH 32.7 pg (26.0-34.0); MCHC 32.8 g/dL (31.0-37.0); MCV 99.7 fL (80.0-100.0); MEAN PLATELET VOLUME 10.7 fL (7.4-10.4); RBC 2.97 10x6/uL (4.20-6.10); RDW 13.9 % (11.5-14.5)
[2018-08-23 06:30] LABS: ALBUMIN 2.2 g/dL (3.4-5.0); ANION GAP 9.9 mmol/L (8-16); BILIRUBIN - TOTAL 0.75 mg/dL (0.2-1.3); CALCIUM 8.4 mg/dL (8.5-10.1); CARBON DIOXIDE 29.8 mmol/L (21.0-32.0); CREATININE - SERUM 1.1 mg/dL (0.6-1.3); POTASSIUM - SERUM 3.7 mmol/L (3.5-5.1); PROTEIN - SERUM 6.4 g/dL (6.4-8.2)
--- NOTE | 2018-08-23 07:47 | NUR ---
PT TO BATH ROOM AND DID HAVE BM. BREAKFAST TRAY SERVED AND PT EATING UP IN CHAIR. VSS. AFEBRILE.
--- NOTE | 2018-08-23 11:18 | NUR ---
LOVE SEGUNDO WITH PT. CHUCKIE YUAN. LENNY.
--- NOTE | 2018-08-23 13:50 | NUR ---
DR JOYA HERE ON ROUNDS. FSBS 167 REPORTED TO HIM. NO NEW ORDERS YET.
--- NOTE | 2018-08-23 17:05 | NUR ---
FAMILY AT BS. DINNER TRAY SERVED AND PT EATING WITH OUT DIFFICULTY.
--- NOTE | 2018-08-23 21:00 | NUR ---
1900 REPORT RECEIVED CARE ASSUMED ASSESSMENT DONE SEE FLOW SHEET. VSS. TEACHING PROVIDED. 2100 MEDS GIVEN PER MAR NO SIGNS OF ACUTE DISTRESS NOTED WILL CONTINUE TO MONITOR.
--- NOTE | 2018-08-23 23:00 | NUR ---
REASSESSMENT DONE SEE FLOW SHEET VSS. O2 TITRATED DOWN TO 1LPM WILL CONTINUE TO MONITOR.
[2018-08-24] VITALS (12 sets, daily range): BP systolic 97–138; BP diastolic 55–84
--- NOTE | 2018-08-24 03:00 | NUR ---
0100 WATER PROVIDED PER PT REQUEST. PT CONTINUALLY DESATS WHEN IN DEEP SLEEP. 0300 REASSESSMENT DONE SEE FLOW SHEET VSS.
--- NOTE | 2018-08-24 05:00 | NUR ---
IO COLLECTED. DAILY WEIGHT COLLECTED. VSS. PT AMBULATED TO BATHROOM NO SIGNS OF ACUTE DISTRESS NOTED.
[2018-08-24 06:30] LABS: HEMATOCRIT 30.2 % (42.0-54.0); HEMOGLOBIN 10.1 g/dL (13.5-17.5); MCH 32.8 pg (26.0-34.0); MCHC 33.4 g/dL (31.0-37.0); MCV 98.1 fL (80.0-100.0); MEAN PLATELET VOLUME 10.2 fL (7.4-10.4); RBC 3.08 10x6/uL (4.20-6.10); RDW 13.9 % (11.5-14.5); WBC 6.3 10x3/uL (4.8-10.8)
[2018-08-24 06:55] LABS: ALKALINE PHOSPHATASE 59 U/L (46-116); BILIRUBIN - TOTAL 0.59 mg/dL (0.2-1.3); CALC OSMOLALITY 286 mosm/kg (275-300); CALCIUM 8.4 mg/dL (8.5-10.1); CARBON DIOXIDE 29.2 mmol/L (21.0-32.0); CHLORIDE - SERUM 106 mmol/L (98-107); GLUCOSE 106 mg/dL (74-106); POTASSIUM - SERUM 3.9 mmol/L (3.5-5.1); PROTEIN - SERUM 6.1 g/dL (6.4-8.2); SODIUM 143 mmol/L (136-145); UREA NITROGEN 19 mg/dL (7-18); eGFR NON AFRICAN AMERICAN 78 mL/min (90-120)
[2018-08-24 06:57] LABS: ALT (SGPT) 39 U/L (10-68)
--- NOTE | 2018-08-24 07:00 | NUR ---
REPORT RECIEVED FROM THE OFF GOING RN. SEE ASSESSMENT IN THE PTS FLOW SHEET. PT SITTING OOB IN HIS BEDSIDE CHAIR. NSR ON THE MONITOR. VSS AT THIS TIME. PT ON RA. DENIES PAIN. PT INSTRUCTED TO USE IS 10X'S/H. PT PULLS LITTLE OVER 100 ON HIS IS. MIDSTERNAL AND SUBSTERNAL DRESSING C/D/I. BLE HARVEST SITE INCISIONS ROLANDO AND WELL APPROXIMATED. NO DRAINAGE NOTED. PT ASSISTED TO THE BATHROOM. PT HAD A FORMED BM. PT ASSISTED BACK TO HIS CHAIR. SLOW BUT STEADY GAIT NOTED. BREAKFAST TRAY PROVIDED FOR THE PT. CALL LIGHT IN REACH. WILL CONT POC.
[2018-08-24] MEDS ORDERED: AMIODARONE HCL200 MG PO (08:56)
[2018-08-24] MEDS ORDERED: LOPRESSOR25 MG PO (08:57)
[2018-08-24] MEDS ORDERED: COLACE100 MG PO (09:02)
[2018-08-24] MEDS ORDERED: PERCOCET 10-321 EAC1 PO (09:03)
--- NOTE | 2018-08-24 09:17 | NUR ---
PT UP WITH PHYSCIAL THEARPY. PT AMBULATED WITH A STEADY GAIT. NO ISSUES. PT BACK INTO BED. PREPARING TO TPM WIRES PER DR JOYA.
--- NOTE | 2018-08-24 09:55 | NUR ---
PT ASSISTD TO THE BATHROOM. ANOTHER BM NOTED. PT ASSISTED BACK TO BED. WAITING FOR TPM WIRES TO BE REMOVED.
--- NOTE | 2018-08-24 10:04 | NUR ---
TPM WIRES PULLED BY MEREDITH DUMONT PER DR JOYA. MIDSTERNAL AND SUBSTERNAL DRESSING REMOVED. 2 BANDAIDS OVER TPM WIRE SITES. C/D/I. NO S/SX OF INFECTION. INCISIONS WELL APPROXIMATED.
--- NOTE | 2018-08-24 10:39 | NUR ---
DR JOYA AT THE PTS BEDSIDE.
--- NOTE | 2018-08-24 11:01 | MORECARE ---
CASE MANAGEMENT DISCHARGE SUMMARY PATIENT: JUAQUIN GILES UNIT: [id number] ADM DATE: 08/19/18 AGE: 72 : 43 SEX: M ROOM/BED: D[facility] AUTHOR: DEE,DOC PHYSICIAN: REFERRING PHYSICIAN: YEISON JOYA MD DATE OF SERVICE: 08/24/18 Discharge Plan Patient Name: JUAQUIN GILES Facility: [facility]:[place] : 1945 Planned Disposition: Anticipated Discharge Date: Discharge Date: Expected LOS: Initial Reviewer: [email or web address] Initial Review Date: 08/21/2018 Generated: 08/24/18 12:00 pm Comments DCP- Discharge Planning Updated by [email or web address]: Arlette James on 08/24/18 9:[address] Patient Name: JUAQUIN GILES Encounter No: [id number] : 1945 Primary Insurance: MEDICARE A & B Anticipated DC Date: Planned Disposition: External Planned Provider: : D/C IMM explained and signed 08/24/18 @ 1050 DCP follow-up note: Patient and family in agreement with discharge plan. No changes to plan. Case management will follow and assist as needed. Arlette James DCP- Discharge Planning Updated by [email or web address]: Nydia Dickson on 08/21/18 3:[address] Patient Name: JUAQUIN GILES Admission Status: Elective Accout number: [id number] Admission Date: 08-19-2018 : 1945 Admission Diagnosis: Attending: YEISON JOYA Current LOS: 2 Anticipated DC Date: Planned Disposition: Primary Insurance: MEDICARE A & B Discharge Planning Comments: CM MET WITH PATIENT ABOUT DC PLANNING/NEEDS. RESOURCES FOR POST DISCHARGE OFFERED TO PATIENT. STATES NO NEEDS AT THIS TIME. WILL DC TO HOME WITH FAMILY. STATES DOES HAVE A WALKER AT HOME IF NEEDED. CM TO FOLLOW AND ASSIST NEEDED WITH DC PLANNING/NEEDS. Senior Software Systems Engineer: Nydia Dickson DCPIA - Discharge Planning Initial Assessment Updated by [email or web address]: Nydia Dickson on 08/21/18 4:03 pm * Is the patient Alert and Oriented? Yes * PCP CARDENAS * Pharmacy [facility] IN [place] * Preadmission Environment Home with Family * ADLs Independent * Equipment None * List name and contact numbers for known caregivers / representatives who currently or will assist patient after discharge: KATHERINE HUMMEL, * Community resources currently utilized None * Additional services required to return to the preadmission environment? No * Can the patient safely return to the preadmission environment? Yes * Has this patient been hospitalized within the prior 30 days at any hospital? No Coverage Notice Reviewer: [id number] Jj James Notice Issued Date-Time: 08/24/2018 10:55 Notice Type: IM Discharge Notice Notice Delivered To: Patient Relationship to Patient: Self Electronic Masking System Operator Name: Delivery Method: HAND - Hand Delivered Heidy Days: Prior Verbal Notification: Recipient Understood Notice: Yes Recipient Signature: Yes Med Rec Note Co-signed by Attending: Coverage Notice Comment: Last DP export: 08/21/18 3:04 p Patient Name: JUAQUIN GILES Page [id number] at 1101 All edits/amendments must be made on the electronic document DICTATION DATE: 08/24/18 1100 CAR CHASER: FOX 08/24/18 1100 RPT#: [id number] DC DATE: STATUS: ADM IN [facility] [address] [place] [address] END OF REPORT
--- NOTE | 2018-08-24 11:20 | NUR ---
OFFERED TO GIVE THE PT A CHD BATH. PT REFUSED A BATH STATING "ILL JUST WAIT AND GIVE MY SELF A SHOWER AT THE HOUSE WHENEVER I GO HOME."
--- NOTE | 2018-08-24 11:51 | NUR ---
PT ASSISTED OOB. PT TOLERATED WELL. VSS. LUNCH TRAY PROVIDED.
--- NOTE | 2018-08-24 12:55 | NUR ---
MEREDITH DUMONT AT THE PT BEDSIDE GOING OVER DC INSTRUCTIONS.
[2018-08-24] MEDS ORDERED: SULFAMETHOXAZOL1 TA3 PO (14:09)
--- NOTE | 2018-08-24 14:32 | NUR ---
DISCHARGE INSTRUCTIONS WENT OVER WITH THE PT. PT HAS NO QUESTIONS AT THIS TIME. PT REQUESTED A PAIN PILL BEFORE HE LEFT. SEE MAR. URIBE ACCOUTNED FOR. PT LEFT WITH HIS DRIVING IN A STABLE CONDITION.
--- NOTE | 2018-08-24 18:38 | TEE ---
PATIENT:JUAQUIN GILES MEDICAL RECORD: [id number] LOCATION:[place] [address] AGE OF PATIENT: 72 ADMISSION DATE: 08/19/18 SEX: M REFERRING PHYSICIAN: INTERPRETING PHYSICIAN: NORA MANNING MD TRANSESOPHAGEAL ECHOCARDIOGRAM Date: 08/19/18 JOSELO CHARGE Y INDICATIONS: CABG PREMEDICATIONS: PATIENT'S RESPONSE PROCEDURE DOPPLER MEASUREMENTS: LVIT LA 4.4 PA RA LVOT RVOT Asc. Ao AV Gradient Peak AV Mean AV Area MV Gradient Peak MV Mean MV Area INTERPRETATION: Doppler: 2-D: EF 55% COLOR FLOW DOPPLER MODERATE MR NORMAL SALINE STUDY: MISCELLANOUS: DIAGNOSIS: PLAN: Manager Human Capital:Sharlene Graham Fire Prevention Captain: Sharlene MAIER COMMENTS: MAHNAZ PATIENT DATE OF SERVICE: 08/19/2018 PROCEDURE: Transesophageal echo evaluation of valvular structures pre and post-bypass surgery. FINDINGS: 1. Left ventricular chamber size is within normal limits. Left ventricular systolic function is normal. Overall ejection fraction 55% to 60%. 2. Left atrium, right atrium, and right ventricle chamber sizes are upper TRANSESOPHAGEAL ECHOCARDIOGRAM REPORT [id number] GIL GILES limits of normal. 3. Valvular structures have normal structure and motion. 4. Doppler interrogation prebypass surgery reveals moderate mitral regurgitation post-bypass surgery reveals trace mitral regurgitation, no other valvular insufficiency or stenosis. 5. No evidence of pericardial effusion or left ventricular thrombus. TRANSINT:[id number] Voice Confirmation ID: [id number] DOCUMENT ID: [id number] at 1838 CC: [id number] DICTATION DATE: 08/19/18 170 CLINICAL STUDY MANAGER: 08/20/18 0050 DIS IN 08/24/18 [facility] [address] [place] [address]
--- NOTE | 2018-08-24 18:57 | MORECARE ---
CASE MANAGEMENT DISCHARGE SUMMARY PATIENT: JUAQUIN GILES UNIT: [id number] ADM DATE: 08/19/18 AGE: 72 : 43 SEX: M ROOM/BED: D.[facility] AUTHOR: DEE,DOC PHYSICIAN: REFERRING PHYSICIAN: YEISON JOYA MD DATE OF SERVICE: 08/24/18 Discharge Plan Patient Name: JUAQUIN GILES Facility: [facility]:[place] : 1945 Planned Disposition: Anticipated Discharge Date: Discharge Date: 08/24/2018 Expected LOS: Initial Reviewer: [email or web address] Initial Review Date: 08/21/2018 Generated: 08/24/18 7:57 pm Comments DCP- Discharge Planning Updated by [email or web address]: Arlette James on 08/24/18 9:[address] Patient Name: JUAQUIN GILES Encounter No: [id number] : 1945 Primary Insurance: MEDICARE A & B Anticipated DC Date: Planned Disposition: External Planned Provider: : D/C IMM explained and signed 08/24/18 @ 1050 DCP follow-up note: Patient and family in agreement with discharge plan. No changes to plan. Case management will follow and assist as needed. Arlette James DCP- Discharge Planning Updated by [email or web address]: Nydia Dickson on 08/21/18 3:[address] Patient Name: JUAQUIN GILES Admission Status: Elective Accout number: [id number] Admission Date: 08-19-2018 : 1945 Admission Diagnosis: Attending: YEISON JOYA Current LOS: 2 Anticipated DC Date: Planned Disposition: Primary Insurance: MEDICARE A & B Discharge Planning Comments: CM MET WITH PATIENT ABOUT DC PLANNING/NEEDS. RESOURCES FOR POST DISCHARGE OFFERED TO PATIENT. STATES NO NEEDS AT THIS TIME. WILL DC TO HOME WITH FAMILY. STATES DOES HAVE A WALKER AT HOME IF NEEDED. CM TO FOLLOW AND ASSIST NEEDED WITH DC PLANNING/NEEDS. Immigration Coordinator: Nydia Dickson DCPIA - Discharge Planning Initial Assessment Updated by [email or web address]: Nydia Dickson on 08/21/18 4:03 pm * Is the patient Alert and Oriented? Yes * PCP CARDENAS * Pharmacy [facility] IN [place] * Preadmission Environment Home with Family * ADLs Independent * Equipment None * List name and contact numbers for known caregivers / representatives who currently or will assist patient after discharge: KATHERINE HUMMEL, * Community resources currently utilized None * Additional services required to return to the preadmission environment? No * Can the patient safely return to the preadmission environment? Yes * Has this patient been hospitalized within the prior 30 days at any hospital? No Coverage Notice Reviewer: [id number] Jj James Notice Issued Date-Time: 08/24/2018 10:55 Notice Type: IM Discharge Notice Notice Delivered To: Patient Relationship to Patient: Self Millwork Estimator Name: Delivery Method: HAND - Hand Delivered Heidy Days: Prior Verbal Notification: Recipient Understood Notice: Yes Recipient Signature: Yes Med Rec Note Co-signed by Attending: Coverage Notice Comment: Last DP export: 08/24/18 10:01 a Patient Name: JUAQUIN GILES Page 06248 at 1857 All edits/amendments must be made on the electronic document DICTATION DATE: 08/24/181856 PHOTO MASK INSPECTOR: FOX 08/24/181856 RPT#: [id number] DC DATE:08/24/18 STATUS: DIS IN [facility] [address] [place] [address] END OF REPORT
== END 2018-08-24 14:42 | disposition home or self-care (01) | DRG 235 ==
LOC: D.SDCHOLD 08-18 13:30 → D.CVICU 08-19 05:08 → D.SDCHOLD 08-19 08:30 → D.CVICU 08-19 12:36 → D.SDCHOLD 08-19 13:30 → D.CVICU 08-24 14:42
PROVIDERS: ADMIT Thoracic Surgery (Cardiothoracic Vascular Surgery); ATTEND Thoracic Surgery (Cardiothoracic Vascular Surgery)
PROC: 021209W Bypass Coronary Artery, Three Arteries from Aorta with Autologous Venous Tissue, Open Approach (ICD-10-PCS; 2018-08-19)
PROC: 06BQ4ZZ Excision of Left Saphenous Vein, Percutaneous Endoscopic Approach (ICD-10-PCS; 2018-08-19)
PROC: B24BZZ4 Ultrasonography of Heart with Aorta, Transesophageal (ICD-10-PCS; 2018-08-19)
PROC: 5A1221Z Performance of Cardiac Output, Continuous (ICD-10-PCS; 2018-08-19)
PROC: 02100Z9 Bypass Coronary Artery, One Artery from Left Internal Mammary, Open Approach (ICD-10-PCS; principal; 2018-08-19 08:30)
DX: I11.0 Hypertensive heart disease with heart failure (principal); I21.4 Non-ST elevation (NSTEMI) myocardial infarction; J96.01 Acute respiratory failure with hypoxia; N17.9 Acute kidney failure, unspecified; J98.11 Atelectasis; I50.23 Acute on chronic systolic (congestive) heart failure; I25.5 Ischemic cardiomyopathy; I25.10 Atherosclerotic heart disease of native coronary artery without angina pectoris; E78.5 Hyperlipidemia, unspecified; I48.91 Unspecified atrial fibrillation; E11.9 Type 2 diabetes mellitus without complications; E66.01 Morbid (severe) obesity due to excess calories; Z68.36 Body mass index [BMI] 36.0-36.9, adult; N40.0 Benign prostatic hyperplasia without lower urinary tract symptoms; M19.90 Unspecified osteoarthritis, unspecified site; R09.02 Hypoxemia

== ENCOUNTER → 2018-09-16 10:10 | Outpatient (CLI) | payer MEDICARE, OTHER ==
[2018-08-22 19:03] VITALS: BMI 31.7
[~2018-09-16 10:10] MED LIST changes: +AMIODARONE HCL200 MG PO; +BAYER CHEWABLE81 MG PO; +COLACE100 MG PO; +I-CAPS; +LOPRESSOR25 MG PO; +PERCOCET 10-321 EAC1 PO; +SULFAMETHOXAZOL1 TA3 PO; +SUPER BETA PROSTATE; +TUMERIC; +VITAMIN; +VITAMIN B-12500 MC1 PO; +[UNRECOGNIZED DRUG - OTHER]
[2018-09-16 11:14] LABS: HEMATOCRIT 40.6 % (42.0-54.0); HEMOGLOBIN 13.7 g/dL (13.5-17.5); MCH 33.2 pg (26.0-34.0); MCHC 33.7 g/dL (31.0-37.0); MCV 98.3 fL (80.0-100.0); MEAN PLATELET VOLUME 9.5 fL (7.4-10.4); RBC 4.13 10x6/uL (4.20-6.10); RDW 13.8 % (11.5-14.5); WBC 7.1 10x3/uL (4.8-10.8)
[2018-09-16 11:21] LABS: ANION GAP 10.8 mmol/L (8-16); CALCIUM 9.6 mg/dL (8.5-10.1); CARBON DIOXIDE 30.5 mmol/L (21.0-32.0); CREATININE - SERUM 1.3 mg/dL (0.6-1.3); POTASSIUM - SERUM 4.3 mmol/L (3.5-5.1)
== END | disposition home or self-care (01) ==
LOC: D.RAD 10:10
PROVIDERS: ATTEND Thoracic Surgery (Cardiothoracic Vascular Surgery)
DX: D64.9 Anemia, unspecified (principal); J90 Pleural effusion, not elsewhere classified

== ENCOUNTER → 2018-10-22 13:32 | Outpatient (CLI) | payer MEDICARE, OTHER ==
[2018-08-22 19:03] VITALS: BMI 31.7
== END | disposition home or self-care (01) ==
LOC: D.RT 13:32
PROVIDERS: ATTEND Internal Medicine Pulmonary Disease
DX: J44.9 Chronic obstructive pulmonary disease, unspecified (principal)

== ENCOUNTER → 2019-06-09 09:12 | Outpatient (CLI) | payer MEDICARE, OTHER ==
[2018-08-22 19:03] VITALS: BMI 31.7
== END | disposition home or self-care (01) ==
LOC: D.CT 06-03 10:00
PROVIDERS: ATTEND Internal Medicine Pulmonary Disease
DX: J43.9 Emphysema, unspecified (principal)

== ENCOUNTER → 2019-11-25 09:04 | Outpatient (CLI) | payer MEDICARE, OTHER ==
[2018-08-22 19:03] VITALS: BMI 31.7
== END | disposition home or self-care (01) ==
LOC: D.RT 09:04
PROVIDERS: ATTEND Internal Medicine Pulmonary Disease
DX: J44.9 Chronic obstructive pulmonary disease, unspecified (principal)

== ENCOUNTER → 2020-06-05 12:34 | Outpatient (CLI) | payer MEDICARE, OTHER ==
[2018-08-22 19:03] VITALS: BMI 31.7
== END | disposition home or self-care (01) ==
LOC: D.HCCECHO 12:34
PROVIDERS: ATTEND Internal Medicine Cardiovascular Disease
DX: R06.00 Dyspnea, unspecified (principal)